=== PATIENT | female | born 1985 | race Caucasian/White ===

== ENCOUNTER 2019-09-07 14:33 | Emergency (ER) | payer SELFPAY ==
[~2019-09-07] VITALS: Ht 165.1 cm; Wt 95.3 kg
[2019-09-07 14:35] VITALS: BP 155/84
[2019-09-07] MEDS ORDERED: LIDO15SO2 TOP (14:47)
[2019-09-07] MEDS ORDERED: ACET-704 PO (14:47)
--- NOTE | 2019-09-07 14:49 | PHYS DOC ---
Adult General Chief Complaint Chief Complaint: DENTAL PROBLEM HPI HPI Patient is a 34-year-old female who presents with complaint of left lower molar dental pain that started last night. Patient states that she used to have a filling in the area and she thinks that part of it had come out. She states that she tried to put in a temporary filling last night but states that she has not had any relief. She has called her dentist office but if he is not able to get her in to see him this week. Patient rates pain at a 9 out of 10.[] Review of Systems Review of Systems Constitutional: Denies fever or chills [] HENT: Positive dental pain[] Respiratory: Denies cough or shortness of breath [] Cardiovascular: No additional information not addressed in HPI [] Allergies Allergies Allergies Coded Allergies Type Severity Reaction Last Updated Verified acetaminophen Allergy Unknown 09/07/19 Yes oxycodone Allergy Unknown 09/07/19 Yes Physical Exam Physical Exam Constitutional: Well developed, well nourished, no acute distress, non-toxic appearance. [] HENT: Normocephalic, atraumatic, left lower first molar demonstrates a temporary filling. Unable to visualize adequately. Patient does have tenderness over that tooth.. [] Cardiovascular: Regular rate and rhythm[] Lungs & Thorax: Bilateral breath sounds clear to auscultation [] EKG EKG [] Radiology/Procedures Radiology/Procedures [] Course & Med Decision Making Course & Med Decision Making Pertinent Labs and Imaging studies reviewed. (See chart for details) [] Dragon Disclaimer Dragon Disclaimer This electronic medical record was generated, in whole or in part, using a voice recognition dictation system. Departure Departure: Impression: Primary Impression: Pain due to dental caries Disposition: HOME, SELF-CARE Condition: STABLE Patient Instructions: Dental Caries, Dental Pain Scripts Acetaminophen With Codeine (TYLENOL WITH CODEINE #3 TABLET) 1 Each Tablet 1 TAB PO PRN Q6HRS PRN for pain MDD 4 Tablet(s), #12 TAB 0 Refills Prov: MALIKA FARRELL Jr. DO 09/07/19 Lidocaine HCl (Lidocaine HCl Viscous) 15 Ml Solution 1 ML TOP Q2HR PRN for toothache, #100 ML Prov: MALIKA FARRELL Jr. DO 09/07/19 MALIKA FARRELL Jr. DO Sep 07, 2019 14:49
== END 2019-09-07 15:15 | disposition home or self-care (01) ==
LOC: ER 14:33
DX: K02.9 Dental caries, unspecified (principal); Z88.6 Allergy status to analgesic agent; Z88.5 Allergy status to narcotic agent
CPT/HCPCS: 99283